=== PATIENT | female | born 1990 | race Asian ===

== ENCOUNTER 2020-01-21 19:53 | Inpatient (IN) | payer OTHER ==
[~2020-01-21] VITALS: Ht 162.6 cm; Wt 85.7 kg
[~2020-01-21 19:53] MED LIST: OXYTOCIN 30 UNITS/LACT RINGERS 500 ML IV ONE; RINGERS SOLUTION,LACTATED 1,000 ML IV PRN
[2020-01-21] MEDS ORDERED: LIDOCAINE/PF 1% 30 ML VIAL INJ PRN (20:00)
[2020-01-21] MEDS ORDERED: METOCLOPRAMIDE HCL 5 MG/ML 2 ML VIAL IVP PRN (20:00)
[2020-01-21] MEDS ORDERED: CITRIC ACID/SODIUM CITRATE 30 ML SOLUTION UDCUP PO PRN (20:00)
[2020-01-21 20:50] VITALS: BP 123/76
[2020-01-21] MEDS ORDERED: PNV11TAB PO (20:51)
[2020-01-21 21:01] LABS: BASOPHILS % (AUTO) 0.4 % (0.0-2.0); EOSINOPHILS % (AUTO) 0.7 % (1.0-6.0); HEMATOCRIT 38.8 % (36-46); LYMPHOCYTES # (AUTO) 1.6 K/uL (1.0-4.8); LYMPHOCYTES % (AUTO) 16.6 % (22.0-44.0); MEAN CORPUSCULAR HEMOGLOBIN 27.5 pg (26.0-34.0); MEAN CORPUSCULAR HGB CONC 33.5 G/dL (31.0-37.0); MEAN CORPUSCULAR VOLUME 82 fL (80-100); MONOCYTES # (AUTO) 0.7 K/uL (0.1-1.0); MONOCYTES % (AUTO) 7.2 % (2.0-9.0); NEUTROPHILS # (AUTO) 7.2 K/uL (1.8-7.7); NEUTROPHILS % (AUTO) 75.1 % (40.0-70.0); PLATELET COUNT (AUTO) 228 K/uL (150-450); RED BLOOD CELL COUNT(AUTO) 4.72 MIL/uL (4.00-5.20); RED CELL DISTRIBUTION WIDTH 15.6 % (11.5-14.5)
[2020-01-21] MEDS ORDERED: OXYTOCIN 30 UNITS/LACT RINGERS 500 ML IV PRN (21:09)
[2020-01-21] MEDS ORDERED: MISOPROSTOL 25 MCG TABLET VG SCH (21:15)
[2020-01-21] MEDS: MISOPROSTOL 25 MCG TABLET PO SCH (21:53)
[2020-01-21] MEDS: RINGERS SOLUTION,LACTATED 1,000 ML IV SCH (21:53)
[2020-01-22] MEDS ORDERED: MISOPROSTOL 25 MCG TABLET PO SCH (01:15)
[2020-01-22] MEDS: RINGERS SOLUTION,LACTATED 1,000 ML IV SCH ×4 (02:12→18:09)
[2020-01-22] MEDS: MISOPROSTOL 25 MCG TABLET PO SCH (02:13)
[2020-01-22] MEDS: FentaNYL CITRATE-PF 100 MCG/2 ML VIAL IVP PRN ×5 (15:49→18:17)
[2020-01-22] MEDS ORDERED: ROPIVACAINE HCL/PF 0.2% 100 ML ED PRN (18:43)
[2020-01-22] MEDS ORDERED: ROPIVACAINE HCL/PF 0.2% 100 ML ED ONE (19:37)
[2020-01-22] MEDS ORDERED: BUPIVACAINE HCL/PF 0.25% 10 ML VIAL ONE (19:37)
[2020-01-22] MEDS ORDERED: DiphenhydrAMINE HCL 50 MG/ML VIAL IVP PRN (23:15)
[2020-01-22] MEDS ORDERED: ONDANSETRON HCL 4 MG/2 ML VIAL IVP PRN (23:15)
[2020-01-23] MEDS ORDERED: RINGERS SOLUTION,LACTATED 1,000 ML IV ONE ×2 (03:49→08:33)
[2020-01-23] MEDS ORDERED: GLYCERIN/WITCH HAZEL LEAF 40 PADS JAR TP PRN (04:00)
[2020-01-23] MEDS ORDERED: MEASLES/MUMPS/RUBELLA VACCINE, LIVE 0.5 ML/VIAL SQ ONE (04:00)
[2020-01-23] MEDS ORDERED: LANOLIN 7 GM OINTMENT TP PRN (04:00)
[2020-01-23] MEDS ORDERED: BENZOCAINE 20%/MENTHOL 56 GM SPRAY CANISTER TP PRN (04:00)
[2020-01-23] MEDS ORDERED: OxyCODONE HCL/ACETAMINOPHEN 5-325 MG TABLET PO PRN (04:00)
[2020-01-23] MEDS: IBUPROFEN 600 MG TABLET PO PRN ×3 (08:46→19:48)
[2020-01-23] MEDS: MAGNESIUM HYDROXIDE SUSPENSION 30 ML UDCUP PO SCH ×2 (08:47→21:12)
[2020-01-23] MEDS: OxyCODONE HCL/ACETAMINOPHEN 5-325 MG TABLET PO PRN (14:34)
[2020-01-24] MEDS: OxyCODONE HCL/ACETAMINOPHEN 5-325 MG TABLET PO PRN ×2 (00:35→07:41)
[2020-01-24] MEDS: MAGNESIUM HYDROXIDE SUSPENSION 30 ML UDCUP PO SCH (07:35)
[2020-01-24] MEDS: IBUPROFEN 600 MG TABLET PO PRN (07:39)
[2020-01-24] MEDS ORDERED: PREN-217 PO (09:01)
[2020-01-24] MEDS ORDERED: FERR-89 PO (09:02)
[2020-01-24] MEDS ORDERED: IBUP-2071 PO (09:02)
[2020-01-24] MEDS ORDERED: DOCU-275 PO (09:03)
== END 2020-01-24 11:50 | disposition home or self-care (01) | DRG 807 ==
LOC: 4S 19:53 → OBSVTOIN 19:53
PROVIDERS: ADMIT Obstetrics & Gynecology; ATTEND Obstetrics & Gynecology
PROC: 10D07Z6 Extraction of Products of Conception, Vacuum, Via Natural or Artificial Opening (ICD-10-PCS; principal; 2020-01-23)
PROC: 10907ZC Drainage of Amniotic Fluid, Therapeutic from Products of Conception, Via Natural or Artificial Opening (ICD-10-PCS; 2020-01-23)
PROC: 3E0R3BZ Introduction of Anesthetic Agent into Spinal Canal, Percutaneous Approach (ICD-10-PCS; 2020-01-23)
PROC: 00HU33Z Insertion of Infusion Device into Spinal Canal, Percutaneous Approach (ICD-10-PCS; 2020-01-23)
DX: O76 Abnormality in fetal heart rate and rhythm complicating labor and delivery (principal); Z37.0 Single live birth; Z3A.41 41 weeks gestation of pregnancy; O66.5 Attempted application of vacuum extractor and forceps
CPT/HCPCS: 86850; 86900; 86901; J2405; J2590; J2795; J3010; J3490; J7120